=== PATIENT | female | born 1985 | race African-American/Black ===

== ENCOUNTER 2023-08-13 06:52 | Emergency (ER) | payer MEDICAID ==
[~2023-08-13] VITALS: Ht 170.2 cm; Wt 77.3 kg
[2023-08-13 06:57] VITALS: TEMP 98.3
[2023-08-13] MEDS ORDERED: KETOROLAC TROMETHAMINE 60 MG/2 ML VIAL IM ONE (08:30)
[2023-08-13] MEDS ORDERED: IBUP-1492 PO (08:39)
[2023-08-13 08:55] VITALS: BP 132/79; PULSE 82; RESP 16
== END 2023-08-13 08:56 | disposition home or self-care (01) ==
LOC: EMS 06:54
DX: S93.402A Sprain of unspecified ligament of left ankle, initial encounter (principal); F12.90 Cannabis use, unspecified, uncomplicated; Z98.890 Other specified postprocedural states; X58.XXXA Exposure to other specified factors, initial encounter; Y93.89 Activity, other specified; Y92.89 Other specified places as the place of occurrence of the external cause; Y99.8 Other external cause status
CPT/HCPCS: 99283; 29515; 73610; 96372; J1885